=== PATIENT | female | born 1990 | race American Indian/Alaskan Native ===

== ENCOUNTER 2017-10-02 23:51 | Emergency (ER) | payer SELFPAY ==
[2017-10-03 00:31] VITALS: BP 125/68
== END 2017-10-03 03:45 | disposition left against medical advice (07) ==
LOC: ED 23:51
DX: R21 Rash and other nonspecific skin eruption (principal); Z53.21 Procedure and treatment not carried out due to patient leaving prior to being seen by health care provider